=== PATIENT | female | born 1950 | race Caucasian/White ===

== ENCOUNTER → 2017-05-29 | Outpatient (CLI) | payer MEDICARE, MEDICAID ==
[~2017-05-29] MED LIST: AMLO5TAB4 PO; ASPI500T10 PO; ATOR20TA9 PO; AZIT250T89 PO; CARV-39 PO; CHLO25TA PO; CLON0.2T PO; DOXA8TAB63 PO; ERGO500017 PO; HYDR-3342 PO; IBUP-1484 PO; LINA5TAB PO; METO-99 PO; METO100T5 PO; PRED20TA PO; SPIR25TA3 PO; TELM1TAB26 PO; TELM80TA PO; VALS320T11 PO
[2017-05-29 11:05] LABS: ALANINE AMINOTRANSFERASE 15 U/L (12-78); ALBUMIN 3.5 g/dL (3.4-5.0); ANION GAP 5 mmol/L (5-15); CALCIUM 8.5 mg/dL (8.5-10.1); CHLORIDE 109 mmol/L (98-107); CREATININE 2.19 mg/dL (0.55-1.02)
[2017-05-29 11:08] LABS: ALKALINE PHOSPHATASE 145 U/L (45-117); BILIRUBIN,TOTAL 0.4 mg/dL (0.2-1.0); TOTAL PROTEIN 7.4 g/dL (6.4-8.2)
== END | disposition home or self-care (01) ==
LOC: STAR 09:41
PROVIDERS: ATTEND Obstetrics & Gynecology Female Pelvic Medicine and Reconstructive Surgery
DX: Z01.818 Encounter for other preprocedural examination (principal); R10.2 Pelvic and perineal pain; N39.3 Stress incontinence (female) (male); N81.4 Uterovaginal prolapse, unspecified
CPT/HCPCS: 36415; 80053; 93005

== ENCOUNTER 2017-06-05 05:52 | Observation (INO) | payer MEDICARE, MEDICAID ==
[~2017-06-05] VITALS: Ht 152.4 cm; Wt 83.4 kg
[2017-06-05] MEDS ORDERED: BUPIVACAINE/PF 0.25% ONE (06:43)
[2017-06-05] MEDS ORDERED: NEOMY/POLYMYXIN B GU IRR. 1 ML IRRIG ONE (06:44)
[2017-06-05] MEDS ORDERED: EPINEPHRINE 1 MG/ML, 1ML ONE (06:44)
[2017-06-05] MEDS ORDERED: ONDANSETRON 2MG/ML, 2ML IVPush PRN ×2 (07:00→19:30)
[2017-06-05] MEDS ORDERED: OXYcodone 5 MG/5 ML ORAL.SOL UDC PO PRN (07:00)
[2017-06-05] MEDS ORDERED: MEPERIDINE/PF 25MG/0.5ML IVPush PRN (07:00)
[2017-06-05] MEDS ORDERED: ACETAMINOPHEN 325 MG TABLET PO PRN ×3 (07:00→19:56)
[2017-06-05] MEDS ORDERED: HYDROcodone/APAP 7.5-325MG/15ML UDC PO PRN (07:00)
[2017-06-05] MEDS ORDERED: LIDOCAINE-MPF 2% ,5ML ONE (07:01)
[2017-06-05] MEDS ORDERED: ROCURONIUM 10 MG/ML,10ML ONE (07:01)
[2017-06-05] MEDS ORDERED: PROPOFOL 10 MG/ML, 20ML ONE (07:01)
[2017-06-05] MEDS ORDERED: LACTATED RINGERS 1,000 ML IV SCH (07:06)
[2017-06-05] MEDS ORDERED: LABETALOL 5MG/ML, 20ML ONE (07:18)
[2017-06-05] MEDS ORDERED: ONDANSETRON 2MG/ML, 2ML ONE (07:36)
[2017-06-05] MEDS ORDERED: CEFAZOLIN 1,000 MG ONE ×2 (07:52)
[2017-06-05] MEDS ORDERED: DEXAMETHASONE 4 MG/ML, 1ML ONE ×2 (08:12)
[2017-06-05] MEDS ORDERED: FENTANYL PF 100 MCG/2ML ONE ×2 (09:01→09:15)
[2017-06-05] MEDS ORDERED: GLYCOPYRROLATE 0.2MG/1ML, 5ML ONE (09:02)
[2017-06-05] MEDS ORDERED: NEOSTIGMINE 1 MG/ML, 10ML ONE (09:02)
[2017-06-05] MEDS ORDERED: morphine SULFATE 10 MG/ML, 1ML ONE ×2 (09:15→11:02)
[2017-06-05] MEDS: FENTANYL PF 100 MCG/2ML IV PRN ×2 (09:40→09:50)
[2017-06-05] MEDS: morphine SULFATE 10 MG/ML, 1ML IV PRN ×5 (10:10→11:15)
[2017-06-05] MEDS: SPIRONOLACTONE 25 MG TABLET PO SCH (10:29)
[2017-06-05] MEDS: CHLORTHALIDONE 25 MG TABLET PO SCH (10:55)
[2017-06-05] MEDS ORDERED: IBUPROFEN 600 MG TABLET ONE (16:12)
[2017-06-05] MEDS ORDERED: IBUPROFEN 200 MG TABLET PO ONE (16:30)
[2017-06-05] MEDS ORDERED: CARVEDILOL 25 MG TABLET PO SCH (18:00)
[2017-06-05 19:00] VITALS: BP 162/78
[2017-06-05] MEDS ORDERED: HYDROcodone/APAP 5/325 TABLET PO PRN (19:30)
[2017-06-05] MEDS ORDERED: OXYcodone/APAP 5/325MG TABLET PO PRN (19:30)
[2017-06-05] MEDS ORDERED: HYDROmorphone 2 MG/ML, 1ML IVPush PRN (19:30)
[2017-06-05] MEDS ORDERED: ZOLPIDEM 5MG TABLET PO PRN (19:30)
[2017-06-05] MEDS ORDERED: ACETAMINOPHEN 650 MG SUPP PR PRN (20:00)
[2017-06-05] MEDS ORDERED: DOXAZOSIN 2MG TABLET PO SCH (21:00)
[2017-06-05] MEDS ORDERED: IBUPROFEN 200 MG TABLET PO SCH (21:00)
[2017-06-05 21:45] VITALS: BP 194/90
[2017-06-05] MEDS: DOCUSATE 100 MG CAPSULE PO SCH (21:51)
[2017-06-05] MEDS: CARVEDILOL 25 MG TABLET PO SCH (21:53)
[2017-06-05] MEDS: SIMETHICONE 80 MG CHEW TAB PO SCH (21:53)
[2017-06-05 22:47] VITALS: BP 183/81
[2017-06-05] MEDS ORDERED: LABETALOL 100 MG TABLET PO ONE (23:00)
[2017-06-05 23:10] VITALS: BP 189/80
[2017-06-06 00:09] VITALS: BP 174/79
[2017-06-06 02:35] VITALS: BP 173/73
[2017-06-06] MEDS: IBUPROFEN 200 MG TABLET PO SCH ×2 (04:29→10:00)
[2017-06-06 04:30] VITALS: BP 158/71
[2017-06-06 07:06] VITALS: BP 191/74
[2017-06-06] MEDS ORDERED: TRADJENTA 5MG HOMEMEDPO SCH (09:00)
[2017-06-06] MEDS ORDERED: DOXAZOSIN 2MG TABLET PO SCH (09:00)
[2017-06-06] MEDS ORDERED: LOSARTAN 50MG TABLET PO SCH (09:00)
[2017-06-06] MEDS: DOCUSATE 100 MG CAPSULE PO SCH (09:28)
[2017-06-06] MEDS: SPIRONOLACTONE 25 MG TABLET PO SCH (09:28)
[2017-06-06] MEDS: SIMETHICONE 80 MG CHEW TAB PO SCH (09:30)
[2017-06-06] MEDS: CHLORTHALIDONE 25 MG TABLET PO SCH (09:30)
[2017-06-06] MEDS: CARVEDILOL 25 MG TABLET PO SCH (09:30)
[2017-06-06] MEDS ORDERED: IBUPROFEN 600 MG TABLET ONE (10:58)
[2017-06-06 14:00] VITALS: BP 179/79
[2017-06-08] MEDS ORDERED: ERGOCALCIFEROL 50,000 UNIT CAPSULE PO SCH (19:30)
== END 2017-06-06 16:40 | disposition home or self-care (01) ==
LOC: OUT 05:52 → ORIP 18:16 → 2NW 18:58
PROVIDERS: ADMIT Obstetrics & Gynecology Female Pelvic Medicine and Reconstructive Surgery; ATTEND Obstetrics & Gynecology Female Pelvic Medicine and Reconstructive Surgery
DX: N80.3 Endometriosis of pelvic peritoneum (principal); N88.8 Other specified noninflammatory disorders of cervix uteri; N83.8 Other noninflammatory disorders of ovary, fallopian tube and broad ligament; N39.46 Mixed incontinence; N81.3 Complete uterovaginal prolapse; E11.9 Type 2 diabetes mellitus without complications; M19.90 Unspecified osteoarthritis, unspecified site
CPT/HCPCS: 58552; 82962; 88307; C1771; G0378; J0171; J0690; J1100; J2270; J2405; J2704; J2710; J3010; J3490; J7120